=== PATIENT | female | born 1950 | race African-American/Black ===

== ENCOUNTER 2018-10-09 13:39 | Emergency (ER) | payer OTHER, MEDICAID ==
[~2018-10-09] VITALS: Ht 152.4 cm; Wt 45.4 kg
[~2018-10-09 13:39] MED LIST: AMLODIPINE BESYL5 MG ORAL; BACTRIM DS TAB1 EAC1 ORAL; CEPHALEXIN500 MG ORAL; LEXAPRO10 MG ORAL; NAPROSYN500 M1 ORAL; NORCO 5-325 TA1 EACH ORAL; RISPERDAL2 MG ORAL; TRAMADOL HCL50 MG ORAL; TYLENOL325 MG ORAL
--- NOTE | 2018-10-09 14:06 | NUR ---
ED Nurse Note: Pt BIBA s/p mechanical fall, hit her dorsal back 1 hr prior to arrival. Dried blood noted. Pt did not lose consciousness. Does not complain of pain at this time. Pt reported she has hx of L knee surgery and waiting for R knee surgery. AOx4, VSS hussain. Will cont to monitor.
[2018-10-09 14:09] VITALS: BP 144/123
[2018-10-09] MEDS ORDERED: Tetanus/Diptheria/Pertussis IM ONE (14:15)
--- NOTE | 2018-10-09 14:15 | Emergency Room Report ---
History of Present Illness General Chief Complaint: Multiple Trauma/Fall Source: Patient, Medical Record Present Illness HPI 67-year-old female presenting with head trauma. She says that she was walking on the street with her walker. It got stuck in something and then she fell backward. Sustained a bump to the back of her head. Did not lose consciousness. No nausea vomiting no blurry vision. Denies any chest pain abdominal pain or extremity pain. Her tetanus is not up-to-date and she is not on any blood thinners Allergies: Coded Allergies: No Known Allergies (Unverified , 09/13/13) Patient History Past Medical History: see triage record, HTN, psych hx Past Surgical History: none Pertinent Family History: none Reviewed Nursing Documentation: PMH: Agreed; PSxH: Agreed Nursing Documentation-PMH Past Medical History: No History, Except For Hx Hypertension: Yes History Of Psychiatric Problem: Yes - Bipolar, Schizophrenia Review of Systems All Other Systems: negative except mentioned in HPI Physical Exam Vital Signs Date Time Temp Pulse Resp B/P (MAP) Pulse Ox O2 Delivery O2 Flow Rate FiO2 10/09/18 13:42 98.1 80 18 119/62 (81) 97 Room Air Sp02 EP Interpretation: reviewed, normal General Appearance: normal inspection, well appearing, no apparent distress Head: normocephalic - Hematoma with abrasion noted to occipital head Eyes: bilateral eye normal inspection, bilateral eye PERRL, bilateral eye EOMI ENT: normal ENT inspection, normal pharynx, normal voice, moist mucus membranes Neck: normal inspection, full range of motion, supple Respiratory: normal inspection, lungs clear, normal breath sounds, no respiratory distress, no retraction, no wheezing, speaking full sentences, chest symmetrical Cardiovascular #1: normal inspection, regular rate, rhythm, normal capillary refill Cardiovascular #2: 2+ radial (R), 2+ radial (L) Gastrointestinal: normal inspection, non tender, soft, non-distended, no guarding Musculoskeletal: normal inspection, back normal, normal range of motion, non- tender Neurologic: normal inspection, alert, oriented x3, responsive, motor strength/ tone normal, sensory intact, speech normal Psychiatric: normal inspection, judgement/insight normal, memory normal Procedures Laceration/Wound Repair Laceration/Wound Repair : Consent: Verbal Wound Location: head Wound's Depth, Shape: superficial Wound Length (cm): 2 Wound Explored: clean Irrigated w/ Saline (ccs): 1000 Betadine Prep?: Yes Anesthesia: Lidocaine w/ Epi Volume Anesthetic (ccs): 2 Wound Repaired With: ancelmo Number of Sutures: 3 Medical Decision Making Diagnostic Impression: Primary Impression: Head injury, closed Additional Impression: Scalp laceration ER Course 67-year-old female with head trauma mechanical fall DDX: Intracranial bleed, scalp mead, closed head injury Plan: CT head, wound care ER course: Patient has remained stable during ED stay. Remains neurologically intact Tdap given scalp laceration was repaired Disposition: Patient is to be discharged to home. Patient is instructed to follow up with their primary care doctor within 5 days. Please note that this Emergency Department Report was dictated using [employer] technology software, occasionally this can lead to erroneous entry secondary to interpretation by the dictation equipment CT/MRI/US Diagnostic Results CT/MRI/US Diagnostic Results : Imaging Test Ordered: CT HEAD Impression IMPRESSION: 1. No evidence of acute intracranial hemorrhage, mass effect or acute territorial infarct. MRI may be obtained for more sensitive evaluation as clinically indicated. 2. Moderate right posterior parietal scalp hematoma without subjacent fracture. Last Vital Signs Date Time Temp Pulse Resp B/P (MAP) Pulse Ox O2 Delivery O2 Flow Rate FiO2 10/09/18 14:09 98.1 66 18 144/123 98 Room Air Disposition: HOME, SELF-CARE Condition: Stable Joan Roque M.D. Oct 09, 2018 14:15
--- NOTE | 2018-10-09 14:40 | NUR ---
ED Nurse Note: Pt down to CT for imaging.
--- NOTE | 2018-10-09 15:16 | Diagnostic Imaging Report ---
CT HEAD WITHOUT CONTRAST INDICATION: Trauma with fall Technique: Continuous helical CT scanning of the head was performed without intravenous contrast material. Axial and coronal 5 mm sections were generated. Radiation dose was minimized using automated exposure control DOSE: Total Dose Length Product - DLP 1270.[address] Dose Index - CTDIvol(s) 70.38 mGy. COMPARISON: None available. FINDINGS: There is no acute intracranial hemorrhage, mass effect or acute territorial infarct. There are subcortical and periventricular white matter hypodensities consistent with chronic ischemic microvascular disease. Mild cortical cerebral atrophy. No extra-axial collections. No hydrocephalus or cisternal effacement. Visualized mastoid air cells and paranasal sinuses are unremarkable. No displaced calvarial fracture. There is a moderate right posterior parietal scalp hematoma IMPRESSION: 1. No evidence of acute intracranial hemorrhage, mass effect or acute territorial infarct. MRI may be obtained for more sensitive evaluation as clinically indicated. 2. Moderate right posterior parietal scalp hematoma without subjacent fracture. The CT scanner at [facility] is accredited by the [employer] and the scans are performed using protocols designed to limit radiation exposure to as low as reasonably achievable to attain images of sufficient resolution adequate for diagnostic evaluation.
--- NOTE | 2018-10-09 15:22 | NUR ---
ED Nurse Note: 1cm laceration wound noted on R dorsal head, irregular edge. 3 ancelmo applied on pt by ERMD at this time. Pt tolerated well.
[2018-10-09 15:46] VITALS: BP 137/89
[2018-10-09 16:18] VITALS: BP 137/89
--- NOTE | 2018-10-09 16:18 | NUR ---
ER DISCHARGE NOTE: Patient is cleared to be discharged per ERMD, pt is aox4, on room air, with stable vital signs. pt was given dc and prescription instructions, pt was able to verbalize understanding, pt id band removed. pt is able to ambulate with steady gait. pt took all belongings.
== END 2018-10-09 16:18 | disposition home or self-care (01) ==
LOC: EMR 15:30
DX: S09.90XA Unspecified injury of head, initial encounter (principal); S01.01XA Laceration without foreign body of scalp, initial encounter; W19.XXXA Unspecified fall, initial encounter; Y92.410 Unspecified street and highway as the place of occurrence of the external cause; F31.9 Bipolar disorder, unspecified; F20.9 Schizophrenia, unspecified; I10 Essential (primary) hypertension; Z23 Encounter for immunization
CPT/HCPCS: 70450; 90471; 90715; 99284